=== PATIENT | male | born 1950 | race American Indian/Alaskan Native ===

== ENCOUNTER 2017-12-01 14:44 | Emergency (ER) | payer OTHER ==
[2017-12-01 19:38] LABS: BUN/Creatinine Ratio 16; Blood Urea Nitrogen 13 mg/dL (9-20); Calcium 8.7 mg/dL (8.4-10.2); Hemolysis Index 4
--- NOTE | 2017-12-01 20:37 | Emergency Department Report ---
ED General Adult HPI - General Chief complaint: Dizziness Stated complaint: POSS HTN, DIZZY Time Seen by Provider: 12/01/17 18:36 Source: patient Mode of arrival: Ambulatory Limitations: No Limitations - History of Present Illness Initial comments: 67-year-old -Citizen Of [place] male comes to the emergency room concerns for hypertension with no history of diagnosis of hypertension. Pulses little dizzy today while shopping. He states he was doing lots of yard work yesterday but felt that he had enough water. Patient denies any chest pain or shortness of breathing or nausea no vomiting no fever no chills. Patient does have a primary care doctor's name is Dr. Danish Hoffman any easy season yearly. - Related Data Allergies Allergy/AdvReac Type Severity Reaction Status Date / Time No Known Allergies Allergy Unverified 12/01/17 15:01 ED Review of Systems ROS: Stated complaint: POSS HTN, DIZZY Other details as noted in HPI Constitutional: denies: chills, fever Eyes: denies: eye pain, eye discharge, vision change ENT: denies: ear pain, throat pain Respiratory: denies: cough, shortness of breath, wheezing Cardiovascular: denies: chest pain, palpitations Endocrine: no symptoms reported Gastrointestinal: denies: abdominal pain, nausea, diarrhea Genitourinary: denies: urgency, dysuria Musculoskeletal: denies: back pain, joint swelling, arthralgia Skin: denies: rash, lesions Neurological: other (dizziness has resolved). denies: headache, weakness, paresthesias Psychiatric: denies: anxiety, depression Hematological/Lymphatic: denies: easy bleeding, easy bruising ED Past Medical Hx - Past Medical History Previous Medical History?: Yes Additional medical history: Mass on left lung - Surgical History Past Surgical History?: Yes Additional Surgical History: Left lung had a chest tube - Social History Smoking Status: Former Smoker Substance Use Type: Alcohol ED Physical Exam - General Limitations: No Limitations General appearance: alert, in no apparent distress - Head Head exam: Present: atraumatic, normocephalic - Eye Eye exam: Present: normal appearance - ENT ENT exam: Present: mucous membranes moist - Neck Neck exam: Present: normal inspection - Respiratory Respiratory exam: Present: normal lung sounds bilaterally. Absent: respiratory distress - Cardiovascular Cardiovascular Exam: Present: regular rate, normal rhythm. Absent: systolic murmur, diastolic murmur, rubs, gallop - GI/Abdominal GI/Abdominal exam: Present: soft, normal bowel sounds. Absent: distended, tenderness - Rectal Rectal exam: Present: deferred - Extremities Exam Extremities exam: Present: normal inspection. Absent: pedal edema - Back Exam Back exam: Present: normal inspection - Neurological Exam Neurological exam: Present: alert, oriented X3 - Psychiatric Psychiatric exam: Present: normal affect, normal mood - Skin Skin exam: Present: warm, dry, intact, normal color. Absent: rash ED Course Vital Signs 12/01/17 15:02 Temperature 98.5 F Pulse Rate 70 Respiratory 18 Rate Blood Pressure 150/80 O2 Sat by Pulse 98 Oximetry - Reevaluation(s) Reevaluation #1: 12/01/17 20:35 Patient reports that his dizziness has resolved while waiting here in fast track. ED Medical Decision Making - Lab Data Result diagrams: 12/01/17 19:16 - Medical Decision Making Patient has been evaluated by this provider fast track as well as Dr. Hernandez. Patient was concern for hypertension. Discussed the patient had blood pressure stable labs were within normal limits. EKG was stable. Discussed the patient he needs to follow-up with Dr. Hoffman and next 3-7 days for reevaluation. Patient verbalized understanding. Critical care attestation.: If time is entered above; I have spent that time in minutes in the direct care of this critically ill patient, excluding procedure time. ED Disposition Clinical Impression: Dizziness Disposition: DC-01 TO HOME OR SELFCARE Is pt being admited?: No Does the pt Need Aspirin: No Condition: Stable Instructions: Dizziness (ED) Additional Instructions: Please follow up with her primary care provider for further evaluation in the next 3-5 days. Referrals: DANISH HOFFMAN MD [Primary Care Provider] - 3-5 Days Forms: Work/School Release Form(ED)
[2017-12-01 20:49] VITALS: BP 173/89
== END 2017-12-01 20:48 | disposition home or self-care (01) ==
LOC: ED 14:44
DX: R42 Dizziness and giddiness (principal); Z87.891 Personal history of nicotine dependence
CPT/HCPCS: 36415; 80048; 82962; 93005; 93010; 99283